=== PATIENT | female | born 2000 | race Caucasian/White ===

== ENCOUNTER 2018-03-30 20:11 | Emergency (ER) | payer MEDICAID ==
[~2018-03-30] VITALS: Ht 154.9 cm; Wt 90.7 kg
[2018-03-30 20:20] VITALS: BP_SYST 128
[2018-03-30 21:13] VITALS: BP_SYST 130
== END 2018-03-30 21:13 | disposition home or self-care (01) ==
LOC: SED 20:11
DX: J06.9 Acute upper respiratory infection, unspecified (principal); J32.9 Chronic sinusitis, unspecified; Z88.6 Allergy status to analgesic agent; Z88.8 Allergy status to other drugs, medicaments and biological substances
CPT/HCPCS: 99283